=== PATIENT | male | born 1995 | race Hispanic/Latino ===

== ENCOUNTER → 2024-01-05 | Outpatient (CLI) | payer OTHER, SELFPAY ==
[2024-01-05 21:37] VITALS: PULSE 66; RESP 12
[2024-01-05 22:30] VITALS: PULSE 61; RESP 14
[2024-01-05 23:10] VITALS: PULSE 66; RESP 14
[2024-01-05 23:31] VITALS: PULSE 59; RESP 12
[2024-01-06] VITALS (12 sets, daily range): PULSE 59–86; RESP 12–25
== END | disposition home or self-care (01) ==
LOC: CANPRECLI → SLP 19:42
PROVIDERS: ATTEND Nurse Practitioner Family
DX: R06.83 Snoring (principal)
CPT/HCPCS: 95811